=== PATIENT | female | born 1950 | race Caucasian/White ===

== ENCOUNTER → 2017-01-04 | Outpatient (CLI) | payer OTHER ==
[~2017-01-04] MED LIST: ATIVAN0.5 MG PO; ATORVASTATIN CA20 MG PO; CALM FORTE PO; CHERATUSSIN AC473 ML PO; CRESTOR20 MG PO; DYAZIDE, MA1 CAPSULE PO; ENDOCET 5-3251 EACH PO; ERGOCALCIF50000 UNIT PO; ESSENTIAL WOMA1 EAC1 PO; FLEXERIL5 MG PO; FLUOXETINE HCL40 MG PO; LEVOFLOXACIN500 MG PO; LIPITOR20 MG PO; LO-DOSE ASPIRIN81 M1 PO; MELATONIN5 M1 PO; MOTRIN400 MG PO; NORCO 5/3251 TABLET PO; OMEPRAZOLE20 MG PO; PERCOCET 5/31 TABLET PO; PRILOSEC20 MG PO; PROZAC40 MG PO; SEROQUEL50 MG PO; TRAMADOL HCL50 MG PO; VENTOLIN HFA18 GM IH; ZOLPIDEM TARTRA10 MG PO; ZYBAN 150 MG T150 MG PO
== END | disposition home or self-care (01) ==
LOC: AMB 08:59
PROC: 0JPT0XZ Removal of Tunneled Vascular Access Device from Trunk Subcutaneous Tissue and Fascia, Open Approach (ICD-10-PCS; principal; 2017-01-04)
DX: I87.8 Other specified disorders of veins (principal)